=== PATIENT | female | born 1985 | race Caucasian/White ===

== ENCOUNTER 2025-10-28 18:03 | Emergency (ER) | payer MEDICAID ==
[~2025-10-28] VITALS: Ht 167.6 cm; Wt 82.0 kg
[2025-10-28 18:15] VITALS: TEMP 36.7; O2SAT 99
[2025-10-28] MEDS: HYDROXYZINE 25MG TABLET PO ONE (19:52)
[2025-10-28] MEDS ORDERED: LORA-249 MT (20:17)
[2025-10-28 20:35] VITALS: BP 130/71; PULSE 74; RESP 19; O2SAT 100
== END 2025-10-28 20:37 | disposition home or self-care (01) ==
LOC: ER 18:36
DX: F41.0 Panic disorder [episodic paroxysmal anxiety] (principal)
CPT/HCPCS: 99283